=== PATIENT | male | born 1965 | race Caucasian/White ===

== ENCOUNTER 2022-02-01 13:14 | Outpatient (CLI) | payer BC, SELFPAY ==
--- OUTSIDE RECORDS SUMMARY | 2022-02-01 08:01 | XMS_ITS | Clinical Summary ---
:1965 Author Organization [employer] [facility] [employer] [facility] [place] [address] Care Team Providers Name Role Phone Daniel Riley MD Primary Care Provider Allergies No known active allergies Medications Medication Sig Dispensed Refills Start Date End Date Status aspirin chewable 81 mg Take 81 mg by 0 Active chewable tablet mouth once daily with a meal. ACETAMINOPHEN (TYLENOL Take 1,000 mg by 0 Active EXTRA STRENGTH ORAL) mouth 4 times daily if needed. nitroglycerin Place 1 tablet 25 tablet 3 11/13/2017 Active (NITROSTAT) 0.4 mg under the tongue sublingual every 5 minutes tabletIndications: ASCVD if needed. (arteriosclerotic cardiovascular disease) atorvastatin (LIPITOR) Take 40 mg by 0 10/03/2019 Active 40 mg tablet mouth at bedtime. Active Problems Problem Noted Date Diverticulitis of large intestine with perforation wit hout abscess 10/06/2019 CAD (coronary artery disease) 05/13/2018 Overview: CABG in 04/23/2016. Coronary stent placeme nt 11/13/17. Acute cholecystitis due to biliary calculus 05/13/2018 ASCVD (arteriosclerotic cardiovascular disease) 2017 Overview: -NSTEMI 04/2017 -CABG at [place] 04/27/2017 BEAR to the LAD, SOBEIDA to the diagonal, SOBEIDA to RCA, SVBG to LCx -Stress Myoview 10/09/2017 Medium to large area of moderate to sev ere ischemia involving the anterior septum, inferior septum and inferior barraza of the left ventricle, base to apex EF 59% Angina pectoris 11/13/2017 Hyperlipidemia 11/13/2017 Former cigarette smoker 11/13/2017 Sleep apnea 09/16/2010 Family History Medical History Relation Name Comments Cancer Brother 2 Heart Disease Father [place] Relation Name Status Comments Brother 1 cancer Brother 2 Father Social History Tobacco Use Types Packs/Day Years Used Date Smoking Tobacco: Some Days Cigarettes 0.5 35 Smokeless Tobacco: Never Tobacco Cessation: Counseling Given: Yes Alcohol Use Standard Drinks/Week Comments Yes 0 (1 standard drink = 0.6 oz pure alcoho l) occasional Sex Assigned at Date Recorded Not on file Obstetrics History Last Filed Vital Signs Vital Sign Reading Time Taken Comments Blood Pressure 120/66 03/02/2021 1:00 PM CELLOPHANE TESTER Pulse 88 03/02/2021 1:00 PM CELLOPHANE TESTER Temperature 36.9 ??C (98.4 ??F) 10/29/2019 5:19 PM CDT Respiratory Rate 18 03/02/2021 1:00 PM CELLOPHANE TESTER Oxygen Saturation 95% 03/02/2021 1:00 PM CELLOPHANE TESTER Inhaled Oxygen Concentration - - Weight 80.7 kg (177 lb 14.4 oz) 03/02/2021 1:00 PM CELLOPHANE TESTER Height 173 cm (5' 8.11) 03/02/2021 1:00 PM With shoes CELLOPHANE TESTER Body Mass Index 26.96 03/02/2021 1:00 PM CELLOPHANE TESTER Plan of Treatment Upcoming Encounters Date Type Specialty Care Team Description 03/01/2022 Office Visit Raoul Saavedra MD [address] [address] (Wo rk) Health Maintenance Due Date Last Done Comments Pneumococcal series for age 19-64 05/05/1969 (1 - PCV) Tdap 05/05/1974 HIV for age 15-65 05/05/1978 Hepatitis C screening for age 0305/05/1981 18-79 Tetanus booster 1983 Colonoscopy through age 75 05/05/2008 Zoster (shingles) series for age 0305/05/2013 50+ (1 of 2) Depression screening for age 12+ 06/13/2017 06/13/2016 COVID-19 vaccine series (3 - 11/15/2020 09/20/2020, 021 Booster for Moderna series) Influenza for age 50-64 10/20/2021 BMI (ht and wt on same day) for 03/02/2022 03/02/2021, 12/0 10/2019, age 18+ 01/08/2019, Additional history exists Lipids for age 45-75 11/13/2022 11/13/2017 Results Not on filefrom Last 3 Months Insurance Payer Benefit Plan / Subscriber ID Effective Dates Phone Addre ss Type Group BLUE CROSS BLUE [employer] OF [id number] 2019-Present [address] [address] [place] [id number] (Home) [place] [id number] Advance Directives Latest Code Status on File Code Status Date Activated Date Inactivated Comments Full Code 10/06/2019 2:16 PM 10/08/2019 8:52 PM Question Answer Comments Code Status Discussion: Not Discussed Code Status History Code Status Date Activated Date Inactivated Comments Full Code 05/13/2018 1:41 PM 05/14/2018 2:51 PM Question Answer Comments Code Status Discussion: Discussed Full Code 11/13/2017 11:03 AM 11/14/2017 2:41 PM Care Teams Bias Cutting Machine Operator Vertical Relationship Specialty Start Date End Date Daniel Riley MD PCP - General Family Practice 05/25/161999 [place] [id number]
[2022-02-01 09:34] LABS: Chloride* 108 mmol/L (96-114)
[2022-02-01 09:35] LABS: Albumin* 4.4 g/dL (3.3-5.0)
[2022-02-01 09:36] LABS: Potassium* 4.6 mmol/L (3.6-5.1); Sodium* 142 mmol/L (135-149)
[2022-02-01 09:38] LABS: Alkaline Phosphatase* 120 U/L (40-150); Aspartate Amino Transferase* 40 U/L (12-35); Bilirubin Total* 1.2 mg/dL (0.1-1.5); Blood Urea Nitrogen* 20 mg/dL (7-30); Carbon Dioxide* 29 mmol/L (20-32); Cholesterol* 129 mg/dL (90-199); Creatinine* 0.7 mg/dL (0.5-1.5); Estimated Glomerular Filt Rate 107 ml/min; Glucose* 90 mg/dL (60-115); Total Protein* 6.9 g/dL (6.0-8.3)
[2022-02-01 09:39] LABS: Alanine Aminotransferase* 62 U/L (4-50); Calcium* 9.2 mg/dL (8.4-10.6); HDL Cholesterol* 42 mg/dL (>=40); LDL Cholesterol Calculated 68 mg/dL (<100); Triglycerides* 93 mg/dL (40-149)
== END 2022-02-01 13:15 | disposition home or self-care (01) ==
PROVIDERS: PCP Family Medicine; Visit Provider Family Medicine
DX: Z00.00 Encounter for general adult medical examination without abnormal findings (principal); I25.10 Atherosclerotic heart disease of native coronary artery without angina pectoris; E78.5 Hyperlipidemia, unspecified
CPT/HCPCS: 80053; 80061

== ENCOUNTER 2023-02-27 07:35 | Outpatient (CLI) | payer OTHER, SELFPAY ==
--- OUTSIDE RECORDS SUMMARY | 2023-02-28 06:10 | XMS_ITS | Clinical Summary ---
Author Name Unknown Organization [employer] [facility] Address [place], [place] [address] Care Team Providers Care Track Mechanic Name Role Phone Daniel Riley MD Primary Care Provider [phone] Allergies No known active allergies Medications Medication Sig Dispensed Refills Start Date End Date Status aspirin chewable 81 mg chewable tablet Take 81 mg by mouth once daily with a meal. 0 Active ACETAMINOPHEN (TYLENOL EXTRA STRENGTH ORAL) Take 1,000 mg by mouth 4 times daily if needed. 0 Active nitroglycerin (NITROSTAT) 0.4 mg sublingual tabletIndications:ASCVD (arteriosclerotic cardiovascular disease) Place 1 tablet under the tongue every 5 minutes if needed. 25 tablet 3 11/13/2017 Active atorvastatin (LIPITOR) 40 mg tablet Take 40 mg by mouth at bedtime. 0 10/03/2019 Active Active Problems Problem Noted Date Diagnosed Date Diverticulitis of large inte александр with perforation without abscess 10/06/2019 CAD (coronary artery disease) 05/13/2018 Overview: CABG in 04/23/2016. Coronary stent placement 11/13/17. Acute cholecystitis due to biliary calculus 04/20 ASCVD (arteriosclerotic cardiovascular disease) 11/13/2017 Overview: -NSTEMI 04/2017 -CABG at [place] 04/27/2017 BEAR to the LAD, SOBEIDA to the diagonal, SOBEIDA to RCA, SVBG to LCx -Stress Myoview 10/09/2017 Medium to large area of moderate to severe ischemia involving the anterior septum, inferior septum and inferior barraza of the left ventricle, base to apex EF 59% Angina pectoris 11/13/2017 Hyperlipidemia 11/13/2017 Former cigarette smoker 11/13/2017 Sleep apnea 09/16/2010 Encounters Date Type Department Care Team Description 12/29/2022 Telephone [facility] [facility] [address] [place] [address] Raoul Saavedra MD Questions from Last 3 Months Family History Medical History Relation Name Comments Cancer Brother 2 Heart Disease Father [place] Relation Name Status Comments Brother 1 cancer Brother 2 Father Social History Tobacco Use Types Packs/Day Years Used Date Smoking Tobacco: Some Days Cigarettes 0.5 35 Smokeless Tobacco: Never Tobacco Cessation:Ready to Q uit: Not Asked; Counseling Given: Not Answered Comments:Less that 1/2 a pack Alcohol Use Standard Drinks/Week Comments Yes 0 (1 standard drink = 0.6 oz pur e alcohol) occasional Social Connections Answer Date Recorded Frequency of Communication with Friends and Fami ly Not on file 02/19/2021 Financial Resource Strain Answer Date R ecorded Difficulty of Paying Living Expenses Not on file 02/19/2021 Difficulty of Paying Living Expenses Not on file 02/19/2021 Sex and Gender Information Value Date Recorded Sex Assigned at Not on file Gender Identity Not on file Sexual Orientation Not on file Obstetrics History Last Filed Vital Signs Vital Sign Reading Time Taken Comments Blood Pressure 122/70 03/01/2022 3:22 PM WOODWINDS TEACHER Pulse 79 03/01/2022 3:22 PM WOODWINDS TEACHER Temperature 36.9 ??C (98.4 ??F) 10/29/2019 5:19 PM CD T Respiratory Rate 16 03/01/2022 3:22 PM WOODWINDS TEACHER Oxygen Saturation 96% 03/01/2022 3:22 PM WOODWINDS TEACHER Inhaled Oxygen Concentration - - Weight 80.5 kg (177 lb 8 oz) 03/01/2022 3:22 PM WOODWINDS TEACHER Height 171.5 cm (5' 7.52) 03/01/2022 3:22 PM CS T With shoes Body Mass Index 27.37 03/01/2022 3:22 PM WOODWINDS TEACHER Plan of Treatment Upcoming Encounters Date Type Department Care Team (Late st Contact Info) Description 03/14/2023 3:00 PM WOODWINDS TEACHER Office Visit [facility] [address] [place] [address] Raoul Saavedra MD [address] [facility] [address] [place] [address] Health Maintenance Due Date Last Done Comments Pneumococcal series for age 6-64 (1 of 2 - PCV) 05/05/1969 Tdap 05/05/1974 HIV for age 15-65 05/05/1978 Hepatitis C screening for ag e 18-79 05/05/1981 Tetanus booster 1983 Colonoscopy through age 75 05/05/2008 Zoster (shingles) series for age 50+ (1 of 2) 05/05/2013 Depression screening for age 12+ 06/13/2017 06/14/19 17 COVID-19 vaccine series ( season) 2022 09/20/2020, 08/23/2020 Influenza for age 50-64 10/20/2022 Lipids for age 45-75 11/13/2022 11/13/2017 BMI (ht and wt on same day) for age 18+ 03/01/2023 03/01/2022, 03/02/2021, 01/28/2020, Additional history exists Advance Directives Latest Code Status on File [...] 11:03 AM 11/14/2017 2:41 PM Care Teams Track Mechanic Relationship Specialty Start Date End Date Daniel Riley MD [address] [place] [address] PCP - General Family Practice 05/25/16
== END 2023-02-27 07:36 | disposition home or self-care (01) ==
LOC: NFLDREF 02-28 06:08
PROVIDERS: PCP Family Medicine; Referring Provider Family Medicine; Visit Provider Family Medicine
DX: I25.10 Atherosclerotic heart disease of native coronary artery without angina pectoris (principal); Z12.5 Encounter for screening for malignant neoplasm of prostate
CPT/HCPCS: 80053; 80061; G0103

== ENCOUNTER 2023-08-10 08:43 | Outpatient (CLI) | payer OTHER, SELFPAY ==
--- OUTSIDE RECORDS SUMMARY | 2023-08-10 08:45 | XMS_ITS | Clinical Summary ---
Author Organization [employer] [facility] [employer] [employer] Address [place], [place] [address] Care Team Providers Care Trolley Operator Name Role Phone Daniel Riley MD Primary Care Provider [phone] Allergies No known active allergies Medications Medication Sig Dispensed Refills Start Date End Date Status aspirin chewable 81 mg chewable tablet Take 81 mg by mouth once daily with a meal. Active ACETAMINOPHEN (TYLENOL EXTRA STRENGTH ORAL) Take 1,000 mg by mouth 4 times daily if needed. Active nitroglycerin (NITROSTAT) 0.4 mg sublingual tabletIndications:ASCVD (arteriosclerotic cardiovascular disease) Place 1 tablet under the tongue every 5 minutes if needed. 25 tablet 3 11/13/2017 Active atorvastatin (LIPITOR) 40 mg tablet Take 40 mg by mouth at bedtime. 10/03/2019 Active Active Problems Problem Noted Date Diagnosed Date Diverticulitis of large inte александр with perforation without abscess 10/06/2019 CAD (coronary artery disease) 05/13/2018 Overview: CABG in 04/23/2016. Coronary stent placement 11/13/17. Acute cholecystitis due to biliary calculus 04/20 ASCVD (arteriosclerotic cardiovascular disease) 11/13/2017 Overview: -NSTEMI 04/2017 -CABG at [place] 04/27/2017 BEAR to the LAD, SOBEIDA to [...] Comments Cancer Brother 2 Heart Disease Father [place] Relation Name Status Comments Brother 1 cancer [...] Sign Reading Time Taken Comments Blood Pressure 134/60 03/14/2023 2:55 PM TOP CLOSER Pulse 62 03/14/2023 2:55 PM TOP CLOSER Temperature 36.9 ??C (98.4 ??F) 10/29/2019 5 :19 PM CDT Respiratory Rate 16 03/01/2022 3:22 PM TOP CLOSER Oxygen Saturation 99% 03/14/2023 2:5 5 PM TOP CLOSER Inhaled Oxygen Concentration - - Weight 79.8 kg (175 lb 14.4 oz) 024 2:55 PM TOP CLOSER Height 171.5 cm (5' 7.52) 03/01/2022 3 :22 PM TOP CLOSER With shoes Body Mass Index 27.13 03/01/2022 3:22 PM TOP CLOSER Plan of Treatment Health Maintenance Due Date Last Done Comments [...] vaccine series ( season) 2022 09/20/2020, 08/23/2020 Lipids for age 45-75 11/13/2022 11/13/2017 BMI (ht and wt on same day) for age 18+ 03/01/2023 03/01/2022, 03/02/2021, 01/28/2020, Additional history exists Influenza for age 50-64 10/21/2023 Procedures Procedure Name Priority Date/Time Associated Diagnosis Comments LIPID PANEL Add On 11/13/2017 10:35 AM CDT from Last 3 Months or Most Recently Relevant to Health Maintenance Results * (ABNORMAL) Lipid Panel (11/13/2017 10:35 AM CDT) CHOLESTEROL,TOTAL 113 100 - 199 mg/dL 11/13/2017 11:48 AM CDT [facility] TRIGLYCERIDES 74 <150 mg/dL 11/13/2017 11:48 AM CDT [facility] HDL CHOLESTEROL 36(L) >40 mg/dL 8 11:48 AM CDT [facility] NON-HDL CHOLESTEROL 77 <145 mg/dl 11/13/2017 11:48 AM CDT [facility] CHOL/HDL RATIO 3.14 <4.50 11/13/2017 11:48 AM CDT [facility] LDL CHOLESTEROL 62 <=130 mg/dL 11/13/2017 11:48 AM CDT [facility] PROVIDER ORDERED STATUS RANDOM 11/13/2017 11:48 AM CDT [facility] Blood BLOOD SPECIMEN / Unknown Venipuncture / Unknown 11/13/2017 10:35 AM CDT 11/13/2017 10:45 AM CDT Gabriela Piedra TRAVELING SECRETARY CHEMISTRY [facility] [address] [place] [address], [place] from Last 3 Months or Most Recently Relevant to Health Maintenance Advance Directives * Full Code (Latest Code Status on File) Date Activated Date Inactivated Comments 10/06/2019 2:16 PM 10/08/2019 8:52 PM Question Answer Comments Code Status Discussion: Not Discussed * Full Code Date Activated Date Inactivated Comments 05/13/2018 1:41 PM 05/14/2018 2:51 PM Question Answer Comments Code Status Discussion: Discussed * Full Code Date Activated Date Inactivated Comments 11/13/2017 11:03 AM 11/14/2017 2:41 PM Care Teams Trolley Operator Relationship Specialty Start Date End Date Daniel Riley MD [address] [place] [address] PCP - General Family Practice 05/25/16
--- NOTE | 2023-08-10 09:41 | W.ANESCHARGE ---
Anesthesia Charges Start Date/Time Anesthesia Start Date: 08/10/23 Anesthesia Start Time: 09:47 Stop Date/Time Anesthesia Stop Date: 08/10/23 Anesthesia Stop Time: 10:10
== END 2023-08-10 08:44 | disposition home or self-care (01) ==
LOC: OP CLINIC 08:44
PROVIDERS: PCP Family Medicine; Visit Provider Internal Medicine
DX: Z12.11 Encounter for screening for malignant neoplasm of colon (principal); K63.5 Polyp of colon; K57.30 Diverticulosis of large intestine without perforation or abscess without bleeding
CPT/HCPCS: 00811; 45380; 88305; J2704

== ENCOUNTER 2024-07-22 09:02 | Outpatient (CLI) | payer OTHER, SELFPAY | END 2024-07-22 09:03 | disposition home or self-care (01) | LOC: NFLDREF 07-24 14:51 | PROVIDERS: PCP Family Medicine; Referring Provider Family Medicine; Visit Provider Family Medicine | DX: Z00.00 Encounter for general adult medical examination without abnormal findings (principal); E78.5 Hyperlipidemia, unspecified; R11.10 Vomiting, unspecified; I25.10 Atherosclerotic heart disease of native coronary artery without angina pectoris | CPT/HCPCS: 80053; 80061 ==